=== PATIENT | male | born 1955 | race Caucasian/White ===

== ENCOUNTER 2024-11-08 21:40 | Emergency (ER) | payer MEDICARE, BC ==
[~2024-11-08] VITALS: Ht 180.3 cm; Wt 97.7 kg
[~2024-11-08 21:40] MED LIST: ATI1T; HYDR-3964; HYDR453.3; KETO15CR2 TOP; LISI2.5T14 PO; METO50TA16 PO; ONDA-104 PO; PROC10TA97 PO; SILD100T PO; SIMV-42 PO
[2024-11-08 22:16] VITALS: BP 155/88; PULSE 94; RESP 20; O2SAT 98
[2024-11-09 00:43] VITALS: TEMP 98.2
== END 2024-11-09 00:43 | disposition home or self-care (01) ==
LOC: ER 21:41
DX: S09.90XA Unspecified injury of head, initial encounter (principal); F10.129 Alcohol abuse with intoxication, unspecified; Z04.3 Encounter for examination and observation following other accident; Z79.899 Other long term (current) drug therapy; Y90.9 Presence of alcohol in blood, level not specified; W19.XXXA Unspecified fall, initial encounter; Y93.89 Activity, other specified; Y92.89 Other specified places as the place of occurrence of the external cause; Y99.8 Other external cause status
CPT/HCPCS: 70450; 99284